=== PATIENT | female | born 1965 | race Caucasian/White ===

== ENCOUNTER → 2016-08-13 | Outpatient (REF) | payer MEDICARE, MEDICAID ==
[~2016-08-13] MED LIST: ASPI1TAB PO; CELE40TA PO; HYDR-4274 PO; VITA1CAP7 PO; [UNRECOGNIZED DRUG - OTHER] PO
[2016-08-13 13:06] LABS: ALBUMIN 4.2 GM/DL (3.2-5.2); ALKALINE PHOSPHATASE 107 U/L (45-117); ALT/SGPT 18 U/L (12-78); ANION GAP 5 MEQ/L (8-16); AST/SGOT 11 U/L (15-37); BILIRUBIN,TOTAL 0.4 MG/DL (0.2-1.0); BLOOD UREA NITROGEN 10 MG/DL (7-18); CALCIUM LEVEL 9.8 MG/DL (8.5-10.1); CARBON DIOXIDE LEVEL 31 MEQ/L (21-32); CHLORIDE LEVEL 105 MEQ/L (98-107); GLOMERULAR FILTRATION RATE > 60.0 (>51); GLUCOSE, FASTING 96 MG/DL (70-105); POTASSIUM SERUM 3.7 MEQ/L (3.5-5.1); SODIUM LEVEL 141 MEQ/L (136-145); TOTAL PROTEIN 7.2 GM/DL (6.4-8.2)
== END ==
LOC: M SFHCADAM 08:22
PROVIDERS: ATTEND Physician Assistant Medical
DX: E78.5 Hyperlipidemia, unspecified (principal); F34.1 Dysthymic disorder

== ENCOUNTER → 2016-08-13 | Outpatient (REF) | payer MEDICARE, MEDICAID ==
[2016-08-13 13:33] LABS: EOS % 0.1 % (0.0-3.0); LARGE UNSTAINED CELL # 0.1 K/mm3 (0.0-0.4); LARGE UNSTAINED CELL % 0.7 % (0.0-4.0); LYMPH # 1.7 K/mm3 (1.5-4.5); LYMPH % 16.9 % (24.0-44.0); MEAN CORPUSCULAR HEMOGLOBIN 31.3 pg (27.0-33.0); MEAN CORPUSCULAR HGB CONC 33.7 g/dl (32.0-36.5); MEAN CORPUSCULAR VOLUME 92.8 fl (80.0-96.0); MONO # 0.3 K/mm3 (0.0-0.8); MONO % 3.2 % (0.0-5.0); NEUTROPHILS # 7.8 K/mm3 (1.8-7.7); PLATELET COUNT, AUTOMATED 202 k/mm3 (150-450); RED CELL DISTRIBUTION WIDTH 12.6 % (11.5-14.5); WHITE BLOOD COUNT 9.8 K/mm3 (4.0-10.0)
[2016-08-13 13:36] LABS: ALBUMIN 4.1 GM/DL (3.2-5.2); ALBUMIN/GLOBULIN RATIO 1.41 (1.00-1.93); ALKALINE PHOSPHATASE 104 U/L (45-117); ALT/SGPT 17 U/L (12-78); ANION GAP 6 MEQ/L (8-16); AST/SGOT 13 U/L (15-37); BILIRUBIN,TOTAL 0.5 MG/DL (0.2-1.0); BLOOD UREA NITROGEN 10 MG/DL (7-18); CALCIUM LEVEL 10.2 MG/DL (8.5-10.1); CARBON DIOXIDE LEVEL 30 MEQ/L (21-32); CHLORIDE LEVEL 106 MEQ/L (98-107); CHOLESTEROL LEVEL 202 MG/DL (<200); CREATININE FOR GFR 0.77 MG/DL (0.55-1.02); GLOMERULAR FILTRATION RATE > 60.0 (>51); GLUCOSE, FASTING 102 MG/DL (70-105); POTASSIUM SERUM 3.8 MEQ/L (3.5-5.1); SODIUM LEVEL 142 MEQ/L (136-145); TRIGLYCERIDES LEVEL 154 MG/DL (<150)
== END ==
LOC: M LABDRWAD 12:43
PROVIDERS: ATTEND Internal Medicine Cardiovascular Disease
DX: Z01.818 Encounter for other preprocedural examination (principal); E66.9 Obesity, unspecified; I10 Essential (primary) hypertension; R00.2 Palpitations; Z72.0 Tobacco use; R94.31 Abnormal electrocardiogram [ECG] [EKG]; E78.5 Hyperlipidemia, unspecified; F34.1 Dysthymic disorder; Z82.49 Family history of ischemic heart disease and other diseases of the circulatory system

== ENCOUNTER → 2016-11-14 | Outpatient (REF) | payer MEDICARE, MEDICAID ==
[~2016-11-14] MED LIST changes: -HYDR-4274 PO; +HYDR50TA70 PO
== END ==
LOC: M SFHCADAM 09:48
PROVIDERS: ATTEND Family Medicine
DX: Z01.419 Encounter for gynecological examination (general) (routine) without abnormal findings (principal); N95.2 Postmenopausal atrophic vaginitis; N63 Unspecified lump in breast; L98.9 Disorder of the skin and subcutaneous tissue, unspecified
CPT/HCPCS: 87070; 87205; 87624; G0123

== ENCOUNTER → 2016-11-26 | Outpatient (CLI) | payer MEDICAID, MEDICARE ==
--- NOTE | 2016-11-26 11:43 | REP ---
LEFT CHEST WALL ULTRASOUND: Left chest wall ultrasound is performed for a palpable abnormality inferior to the left breast. No cystic or solid nodule is seen in the chest wall at the site of a reported palpable abnormality. Clinical correlation and followup recommended. Signed by Lino Martínez MD 11/26/2016 05:36 P
--- NOTE | 2016-11-26 11:51 | REP ---
BILATERAL MAMMOGRAM: FAMILY HISTORY: Mother with breast cancer at age 20. Reportedly there is a palpable abnormality inferior to the left breast in the chest wall. It cannot be visualized by mammography. MLO and CC views of both breasts are performed. There are no prior studies for comparison. There is moderate fibroglandular tissue diffusely bilaterally with no suspicious mass or clustered microcalcifications. No area of architectural distortion is seen. Small normal axillary lymph nodes are present. Ultrasound of the left chest wall at the site of the reported palpable abnormality demonstrated no cystic or solid nodule. IMPRESSION: ACR 2 benign. No mass or clustered microcalcifications. The reported palpable abnormality inferior to the left breast cannot be included on the mammogram and by ultrasound, no cystic or solid nodule is seen at that location. Clinical correlation and followup recommended. Recommend followup mammogram in 1 year. BI-RADS/ACR category 2 mammogram. Benign finding(s). Routine annual screening mammography (for women over age 40). This mammogram was interpreted with the aid of an FDA-approved computer-aided detection system. A. Negative x-ray reports should not delay biopsy if a dominant or clinically suspicious mass is present. B. Four to eight percent of cancers are not identified by x-ray. C. Adenosis and dense breasts may obscure an underlying neoplasm. The patient states she had a clinical breast exam in 10/2016. The patient letter being requested is M2. Signed by Lino Martínez MD 11/26/2016 05:36 P
== END ==
LOC: M RAD 09:48
PROVIDERS: ATTEND Physician Assistant Medical
DX: N63 Unspecified lump in breast (principal); Z80.3 Family history of malignant neoplasm of breast
CPT/HCPCS: 76705; G0204

== ENCOUNTER → 2018-02-09 | Outpatient (REF) | payer MEDICARE ==
[2018-02-09 13:30] LABS: RHEUMATOID FACTOR QUANT < 10.0 IU/ML (<15.0)
[2018-02-09 13:30] LABS: C REACTIVE PROTEIN QUANTITATIV 0.39 MG/DL (0.00-0.30)
[2018-02-09 14:10] LABS: ERYTHROCYTE SEDIMENTATION RATE 12 mm/hr (0-30)
[2018-02-11 00:10] LABS: ANTI DOUBLE STRAND-DNA AB 2 IU/mL (0-9); ANTINUCLEAR ANTIBODIES DIRECT Positive (Negative); Lyme Disease IgG/IgM Antibodie <0.91 ISR (0.00-0.90); Lyme Disease IgM Ab Quantitati <0.80 index (0.00-0.79); RNP ANTIBODIES 0.3 AI (0.0-0.9); SJOGREN'S ANTI SS-A <0.2 AI (0.0-0.9); SJOGREN'S ANTI SS-B 1.3 AI (0.0-0.9); SMITH ANTIBODIES <0.2 AI (0.0-0.9)
== END ==
LOC: M SFHCADAM 09:49
DX: M25.50 Pain in unspecified joint (principal)
CPT/HCPCS: 86140

== ENCOUNTER → 2018-02-09 | Outpatient (CLI) | payer MEDICARE | LOC: M ADAMS 10:00 | DX: M18.12 Unilateral primary osteoarthritis of first carpometacarpal joint, left hand (principal); M79.642 Pain in left hand; M79.645 Pain in left finger(s); M25.532 Pain in left wrist | CPT/HCPCS: 73110; 86140 ==

== ENCOUNTER → 2018-03-16 | Outpatient (CLI) | payer MEDICARE | LOC: M ADAMS 10:14 | DX: M25.50 Pain in unspecified joint (principal); M79.672 Pain in left foot; M79.671 Pain in right foot; M25.78 Osteophyte, vertebrae; M51.37 Other intervertebral disc degeneration, lumbosacral region | CPT/HCPCS: 72110; 86038 ==

== ENCOUNTER → 2018-03-16 | Outpatient (REF) | payer MEDICARE ==
[2018-03-18 00:06] LABS: ANA (HEP2) Negative (.)
== END ==
LOC: M SFHCADAM 10:02
DX: R76.8 Other specified abnormal immunological findings in serum (principal)
CPT/HCPCS: 86038

== ENCOUNTER → 2018-10-26 | Outpatient (REF) | payer MEDICARE, OTHER ==
[~2018-10-26] MED LIST changes: -ASPI1TAB PO; +ASPI81TA26 PO; +D-3-50003 PO; -VITA1CAP7 PO
== END ==
LOC: M LAB REF 12:16
PROVIDERS: ATTEND Physician Assistant Medical
DX: N39.0 Urinary tract infection, site not specified (principal)

== ENCOUNTER → 2018-12-03 | Outpatient (REF) | payer MEDICARE | LOC: M LAB REF 18:03 | PROVIDERS: ATTEND Physician Assistant Medical | DX: N39.0 Urinary tract infection, site not specified (principal) ==

== ENCOUNTER → 2018-12-10 | Outpatient (REF) | payer MEDICARE, OTHER ==
[2018-12-10 12:36] LABS: APPEARANCE, URINE CLEAR (CLEAR); BACTERIA, URINE AUTO 1+ (NEGATIVE); BILIRUBIN, URINE AUTO NEGATIVE (NEGATIVE); BLOOD, URINE BLOOD 3+ (NEGATIVE); COLOR, URINE YELLOW (YELLOW); GLUCOSE, URINE (UA) AUTO NEGATIVE (NEGATIVE); KETONE, URINE AUTO NEGATIVE (NEGATIVE); LEUKOCYTE ESTERASE, URINE AUTO TRACE (NEGATIVE); MUCUS, URINE SMALL (NEGATIVE); NITRITE, URINE AUTO NEGATIVE (NEGATIVE); PROTEIN, URINE AUTO NEGATIVE (NEGATIVE); RBC, URINE AUTO 52 /HPF (0-3); SPECIFIC GRAVITY URINE AUTO 1.012 (1.002-1.035); SQUAMOUS EPITHELIAL CELL UR AU 0 /HPF (0-6); UROBILINOGEN, URINE AUTO 0.2 mg/dL (0.0-2.0); WBC, URINE AUTO 1 /HPF (0-3)
== END ==
LOC: M SFHCADAM 12:13
PROVIDERS: ATTEND Physician Assistant Medical
DX: R39.15 Urgency of urination (principal); R10.9 Unspecified abdominal pain

== ENCOUNTER → 2018-12-21 | Outpatient (REF) | payer MEDICARE, OTHER ==
[2018-12-21 14:16] LABS: AMORPHOUS SEDIMENT SMALL (NEGATIVE); APPEARANCE, URINE CLOUDY (CLEAR); BACTERIA, URINE AUTO NEGATIVE (NEGATIVE); BILIRUBIN, URINE AUTO NEGATIVE (NEGATIVE); BLOOD, URINE BLOOD 2+ (NEGATIVE); COLOR, URINE YELLOW (YELLOW); GLUCOSE, URINE (UA) AUTO NEGATIVE (NEGATIVE); KETONE, URINE AUTO NEGATIVE (NEGATIVE); LEUKOCYTE ESTERASE, URINE AUTO NEGATIVE (NEGATIVE); MUCUS, URINE SMALL (NEGATIVE); NITRITE, URINE AUTO NEGATIVE (NEGATIVE); PROTEIN, URINE AUTO NEGATIVE (NEGATIVE); RBC, URINE AUTO 26 /HPF (0-3); SPECIFIC GRAVITY URINE AUTO 1.011 (1.002-1.035); SQUAMOUS EPITHELIAL CELL UR AU 0 /HPF (0-6); UROBILINOGEN, URINE AUTO 0.2 mg/dL (0.0-2.0); WBC, URINE AUTO 1 /HPF (0-3)
== END ==
LOC: M SFHCADAM 08:55
PROVIDERS: ATTEND Physician Assistant Medical
DX: R31.21 Asymptomatic microscopic hematuria (principal)

== ENCOUNTER → 2018-12-22 | Outpatient (CLI) | payer MEDICARE ==
[~2018-12-22] MED LIST changes: +BACT800T5 PO; +CETI10CH PO; +PHEN-501 PO; +RA T500C2 PO; +REME15TA2 PO; +ZYRTTAB8 PO
[2018-12-22 17:39] LABS: BLOOD UREA NITROGEN 13 MG/DL (7-18); CREATININE FOR GFR 0.84 MG/DL (0.55-1.30); GLOMERULAR FILTRATION RATE > 60.0 (>51)
[2018-12-22 18:26] LABS: APPEARANCE, URINE CLOUDY (CLEAR); BACTERIA, URINE AUTO 1+ (NEGATIVE); BILIRUBIN, URINE AUTO NEGATIVE (NEGATIVE); BLOOD, URINE BLOOD 3+ (NEGATIVE); CALCIUM OXALATE CRYSTALS LARGE; COLOR, URINE AMBER (YELLOW); GLUCOSE, URINE (UA) AUTO NEGATIVE (NEGATIVE); KETONE, URINE AUTO TRACE mg/dL (NEGATIVE); LEUKOCYTE ESTERASE, URINE AUTO 2+ (NEGATIVE); MUCUS, URINE SMALL (NEGATIVE); NITRITE, URINE AUTO NEGATIVE (NEGATIVE); PROTEIN, URINE AUTO 2+ mg/dL (NEGATIVE); RBC, URINE AUTO 40 /HPF (0-3); SPECIFIC GRAVITY URINE AUTO 1.021 (1.002-1.035); SQUAMOUS EPITHELIAL CELL UR AU 1 /HPF (0-6); WBC, URINE AUTO 26 /HPF (0-3)
== END ==
LOC: M SMT 15:19
PROVIDERS: ATTEND Urology
DX: R31.0 Gross hematuria (principal)
CPT/HCPCS: 36415; 81001; 82565; 84520; G0463

== ENCOUNTER → 2018-12-27 | Outpatient (CLI) | payer MEDICARE ==
[~2018-12-27] MED LIST changes: -BACT800T5 PO; -CETI10CH PO; +ISOVUE-370 76% 100ML VIAL (Q9967) As Ordered ONE; -PHEN-501 PO; -RA T500C2 PO; -REME15TA2 PO; -ZYRTTAB8 PO
--- NOTE | 2018-12-28 08:25 | REP ---
CT urography: CT abdomen and pelvis without and with IV contrast: History: Gross hematuria. Comparison study: December 08, 2018. CT contrast dose: 100 mL of intravenous Isovue 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 The lung bases are clear on axial CT images. The liver contains a small sub-centimeter central hepatic cyst, 8.5 mm in diameter. The liver is otherwise homogeneous in texture and normal in appearance. The spleen is at the upper range of normal in size measuring 13.2 cm in greatest transverse dimension. No focal splenic lesion is seen. No adrenal lesion is observed on either side. The pancreas shows no abnormality. The gallbladder is unremarkable. The kidneys show no evidence of hydronephrosis or mass. There is a tiny calcific opacity in the upper pole collecting system of the right kidney on page 31 of 147 in series 201 of the precontrast study. A tiny kidney stone is suspected. There is a tiny cyst in the upper pole of the left kidney measuring 9 mm in greatest diameter. Post contrast delayed images show no filling defect in the collecting system on either side. The ureters describe a normal course to the bladder. No bladder mass lesion is observed. No other urinary tract calculus is seen. No retroperitoneal mass or adenopathy is seen. Small and large intestinal bowel loops are unremarkable. No abdominal wall defect is seen. No bony destructive lesion is observed. Impression: 1. Suspect tiny 1-2 mm calculus upper pole right kidney. 2. 9 mm cyst upper pole left kidney. 3. Borderline size spleen. 4. Subcentimeter cyst in the liver. 5. Otherwise negative CT urography. Electronically Signed by Bong Ricardo MD 12/28/2018 07:26 P
== END ==
LOC: M RAD 16:05
PROVIDERS: ATTEND Urology
DX: N28.1 Cyst of kidney, acquired (principal); K76.89 Other specified diseases of liver; R31.0 Gross hematuria
CPT/HCPCS: 74178; Q9967

== ENCOUNTER → 2019-01-07 | Outpatient (CLI) | payer MEDICARE ==
[~2019-01-07] MED LIST changes: +BACT800T5 PO; +CETI10CH PO; -ISOVUE-370 76% 100ML VIAL (Q9967) As Ordered ONE; +PHEN-501 PO; +RA T500C2 PO; +REME15TA2 PO; +ZYRTTAB8 PO
[2019-01-07 14:41] LABS: EOS % 0.1 % (0.0-3.0); HEMOGLOBIN 12.7 g/dl (12.0-15.5); LYMPH # 2.3 10^3/uL (1.5-4.5); LYMPH % 31.7 % (24.0-44.0); MEAN CORPUSCULAR HEMOGLOBIN 31.3 pg (27.0-33.0); MEAN CORPUSCULAR HGB CONC 33.4 g/dl (32.0-36.5); MEAN CORPUSCULAR VOLUME 93.6 fl (80.0-96.0); MONO # 0.4 10^3/uL (0.0-0.8); MONO % 5.8 % (0.0-5.0); NEUTROPHILS # 4.5 10^3/uL (1.8-7.7); NEUTROPHILS % 62.1 % (36.0-66.0); PLATELET COUNT, AUTOMATED 230 10^3/uL (150-450); RED BLOOD COUNT 4.06 10^6/uL (4.00-5.40); WHITE BLOOD COUNT 7.3 10^3/uL (4.0-10.0)
[2019-01-07 14:42] LABS: APPEARANCE, URINE HAZY (CLEAR); BACTERIA, URINE AUTO NEGATIVE (NEGATIVE); BILIRUBIN, URINE AUTO NEGATIVE (NEGATIVE); BLOOD, URINE BLOOD 3+ (NEGATIVE); CALCIUM OXALATE CRYSTALS SMALL; COLOR, URINE YELLOW (YELLOW); GLUCOSE, URINE (UA) AUTO NEGATIVE (NEGATIVE); KETONE, URINE AUTO TRACE mg/dL (NEGATIVE); LEUKOCYTE ESTERASE, URINE AUTO 2+ (NEGATIVE); MUCUS, URINE SMALL (NEGATIVE); NITRITE, URINE AUTO NEGATIVE (NEGATIVE); PROTEIN, URINE AUTO NEGATIVE (NEGATIVE); RBC, URINE AUTO 9 /HPF (0-3); SPECIFIC GRAVITY URINE AUTO 1.015 (1.002-1.035); SQUAMOUS EPITHELIAL CELL UR AU 1 /HPF (0-6); UROBILINOGEN, URINE AUTO 0.2 mg/dL (0.0-2.0); WBC, URINE AUTO 16 /HPF (0-3)
[2019-01-07 14:49] LABS: BLOOD UREA NITROGEN 14 MG/DL (7-18); CALCIUM LEVEL 10.6 MG/DL (8.5-10.1); CARBON DIOXIDE LEVEL 31 MEQ/L (21-32); CHLORIDE LEVEL 107 MEQ/L (98-107); CREATININE FOR GFR 0.85 MG/DL (0.55-1.30); GLOMERULAR FILTRATION RATE > 60.0 (>51); GLUCOSE, FASTING 101 MG/DL (70-100); POTASSIUM SERUM 3.6 MEQ/L (3.5-5.1); SODIUM LEVEL 142 MEQ/L (136-145)
--- NOTE | 2019-01-08 14:52 | ECGEPIP ---
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
== END ==
LOC: M LAB 13:31
PROVIDERS: ATTEND Urology
DX: R31.0 Gross hematuria (principal)

== ENCOUNTER 2019-01-13 10:01 | Day surgery (SDC) | payer MEDICARE ==
[~2019-01-13] VITALS: Ht 162.6 cm; Wt 83.4 kg
[~2019-01-13 10:01] MED LIST changes: -BACT800T5 PO; -CETI10CH PO; +LIDOCAINE 1% MDV 20ML VIAL SQ PRN; +LR 1,000 ML IV ONE; -PHEN-501 PO; +ceFAZolin SOD 2 GM in IV 1 EA IV ONE
[2019-01-13] MEDS ORDERED: LIDOCAINE 2% INJ 100 MG/5 ML SDV (FOR ANES.) As Ordered ONE (12:59)
[2019-01-13] MEDS ORDERED: MIDAZOLAM INJ 2 MG/2 ML VIAL (J2250) As Ordered ONE (12:59)
[2019-01-13] MEDS ORDERED: propofoL 200 MG/20 ML VIAL As Ordered ONE (12:59)
[2019-01-13] MEDS ORDERED: ROCURONIUM BROMIDE 50 MG/5 ML VIAL As Ordered ONE (12:59)
[2019-01-13] MEDS ORDERED: fentaNYL 100 MCG/2 ML INJECTION (J3010) As Ordered ONE (12:59)
[2019-01-13] MEDS ORDERED: BUPIVACAINE HCL 0.5% 30 ML VIAL As Ordered ONE (13:34)
[2019-01-13] MEDS ORDERED: ONDANSETRON 4MG/2ML VIAL (J2405) As Ordered ONE (14:00)
[2019-01-13] MEDS ORDERED: KETOROLAC 60 MG/2 ML VIAL (J1885) As Ordered ONE (14:00)
[2019-01-13] MEDS ORDERED: ePHEDrine SULFATE 25 MG/5 ML(5MG/ML) SYRINGE As Ordered ONE (14:00)
[2019-01-13] MEDS ORDERED: PERCOCET 5MG/325MG TAB As Ordered ONE (14:31)
[2019-01-13] MEDS ORDERED: PHEN-501 PO (14:39)
[2019-01-13] MEDS ORDERED: BACT800T5 PO (14:39)
[2019-01-13] MEDS ORDERED: ONDANSETRON 4MG/2ML VIAL (J2405) IV PRN (15:00)
[2019-01-13] MEDS ORDERED: LR 1,000 ML IV SCH (15:00)
[2019-01-13] MEDS ORDERED: fentaNYL 100 MCG/2 ML INJECTION (J3010) IV PRN (15:00)
[2019-01-13] MEDS ORDERED: PERCOCET 5MG/325MG TAB PO PRN (15:00)
[2019-01-13 15:30] VITALS: BP 120/56
--- NOTE | 2019-01-14 11:25 | RO ---
DATE OF PROCEDURE: 01/13/2019 PREPROCEDURE DIAGNOSIS: Bladder neck polyps with urgency and frequency symptoms. POSTPROCEDURE DIAGNOSIS: Bladder neck polyps with urgency and frequency symptoms. PROCEDURE PERFORMED: Cystoscopy, biopsy, and fulguration of bladder neck polyps. SURGEON: Alfredo Madera MD TUBE DRAWER: ANESTHESIA: General. 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 She has a past history of smoking. She had a CT scan demonstrating a small passable sized right upper pole stone. She has had pyuria with several negative cultures. She does have urgency and frequency at times and must get up two to three times at night to void. Office cystoscopy revealed multiple polyps about the bladder neck and possibly urethra. DESCRIPTION OF PROCEDURE: After obtaining informed consent from the patient, she was brought to the operating room where she underwent general anesthetic. She was prepped and draped in the usual manner. A 22-Arabic diagnostic cystoscope was advanced into the bladder and the bladder was inspected. Ureteral orifices were in orthotopic position, effluxing clear urine. No other bladder mucosal lesions were seen. There were multiple polyps in the bladder neck and proximal urethra. Cold cut biopsy forceps were used to remove these and additional small polyps were fulgurated with electrocautery in addition to obtaining hemostasis. The bladder was then emptied and the patient went to the recovery room in satisfactory condition. DISPOSITION: Dismissed home to followup in 10 to 14 days. Diet as tolerated. Activity as tolerated. MEDICATIONS: - Septra DS one by mouth twice a day - Pyridium 200 mg as needed for dysuria
[2019-03-24] MEDS ORDERED: CETI10CH PO (09:08)
== END 2019-01-13 15:45 | disposition home or self-care (01) ==
LOC: M SDC 10:01
PROVIDERS: ATTEND Urology
DX: N32.0 Bladder-neck obstruction (principal); D18.09 Hemangioma of other sites; R39.15 Urgency of urination; R35.0 Frequency of micturition; R31.0 Gross hematuria; F17.210 Nicotine dependence, cigarettes, uncomplicated; F41.9 Anxiety disorder, unspecified; I25.2 Old myocardial infarction; Z88.8 Allergy status to other drugs, medicaments and biological substances; Z79.82 Long term (current) use of aspirin; Z79.899 Other long term (current) drug therapy
CPT/HCPCS: 52214; 88305; J0690; J1885; J2250; J2405; J3010

== ENCOUNTER 2019-04-08 06:34 | Day surgery (SDC) | payer MEDICARE ==
[~2019-04-08] VITALS: Ht 162.6 cm; Wt 75.7 kg
[~2019-04-08 06:34] MED LIST changes: +BACT800T5 PO; +CETI10CH PO; -LIDOCAINE 1% MDV 20ML VIAL SQ PRN; -LR 1,000 ML IV ONE; +NS 1,000 ML IV ONE; +PHEN-501 PO; -ceFAZolin SOD 2 GM in IV 1 EA IV ONE
[2019-04-08] MEDS ORDERED: PROPOFOL 200 MG/20 ML VIAL As Ordered ONE (07:40)
[2019-04-08] MEDS ORDERED: LIDOCAINE 2% INJ 100 MG/5 ML SDV (FOR ANES.) As Ordered ONE (07:40)
--- NOTE | 2019-04-08 07:49 | ROOR ---
Patient Name: Eve Veliz Procedure Date: 04/08/2019 7:32 AM Date of : 1965 Age: 53 Room: [facility] Gender: Female Note Status: Finalized Procedure: Colonoscopy Indications: Generalized abdominal pain, Constipation Providers: Higinio BARNARD MD Referring MD: ALONSO Dang Requesting Provider: Medicines: Monitored Anesthesia Care Complications: No immediate complications. Procedure: Pre-Anesthesia Assessment: - The heart rate, respiratory rate, oxygen saturations, blood pressure, adequacy of pulmonary ventilation, and response to care were monitored throughout the procedure. The Colonoscope was introduced through the anus and advanced to the cecum, identified by appendiceal orifice and ileocecal valve. The colonoscopy was performed with difficulty due to inadequate bowel prep. The patient tolerated the procedure well. The quality of the bowel preparation was unsatisfactory. Findings: Skin tags were found on perianal exam. The colon is grossly normal without large tumors or obstructing lesions. Unable to perform adequate detail examination. Small lesions may have been missed. Internal hemorrhoids were found during retroflexion. The hemorrhoids were medium-sized. Impression: - Preparation of the colon was unsatisfactory. - The colon is grossly normal without large tumors or obstructing lesions. Unable to perform adequate detail examination. Small lesions may have been missed. - Perianal skin tags found on perianal exam. - Internal hemorrhoids. - No specimens collected. Recommendation: - Repeat colonoscopy at the next available appointment because the bowel preparation was poor. - My office will call you to reschedule the procedure. Higinio Barnard MD Higinio BARNARD MD 04/08/2019 7:49:04 AM Electronically signed by Higinio BARNARD MD Number of Addenda: 0 Note Initiated On: 04/08/2019 7:32 AM Estimated Blood Loss: Estimated blood loss: none.
[2019-04-08 08:10] VITALS: BP 131/63
== END 2019-04-08 08:20 | disposition home or self-care (01) ==
LOC: M OPP 06:34
PROVIDERS: ATTEND Internal Medicine Gastroenterology
DX: K64.4 Residual hemorrhoidal skin tags (principal); R10.84 Generalized abdominal pain; K59.00 Constipation, unspecified; Z88.5 Allergy status to narcotic agent; Z88.8 Allergy status to other drugs, medicaments and biological substances; Z79.82 Long term (current) use of aspirin; Z79.899 Other long term (current) drug therapy

== ENCOUNTER → 2019-07-17 | Outpatient (CLI) | payer MEDICARE ==
[~2019-07-17] MED LIST changes: +B-12100T2 PO; -NS 1,000 ML IV ONE; +VITA500079 PO
--- NOTE | 2019-07-18 07:49 | REP ---
RIGHT THIRD DIGIT, FOUR VIEWS: Four views of the right 3rd digit are performed and demonstrate no fracture, dislocation or intrinsic bone disease. IMPRESSION: No acute fracture or dislocation. Electronically Signed by Lino Martínez MD 07/18/2019 01:20 P
== END ==
LOC: M ADAMS 13:56
PROVIDERS: ATTEND Physician Assistant
DX: M79.644 Pain in right finger(s) (principal)

== ENCOUNTER 2019-07-25 07:23 | Day surgery (SDC) | payer MEDICARE ==
[~2019-07-25] VITALS: Ht 162.6 cm; Wt 86.2 kg
[~2019-07-25 07:23] MED LIST changes: +NS 1,000 ML IV ONE
[2019-07-25] MEDS ORDERED: propofoL 200 MG/20 ML VIAL As Ordered ONE (08:33)
[2019-07-25] MEDS ORDERED: LIDOCAINE 2% INJ 100 MG/5 ML SDV (FOR ANES.) As Ordered ONE (08:33)
--- NOTE | 2019-07-25 09:16 | ROOR ---
Patient Name: Eve Veliz Procedure Date: 07/25/2019 8:29 AM Date of : 1965 Age: 53 Room: [facility] Gender: Female Note Status: Finalized Procedure: Colonoscopy Indications: Constipation Providers: Higinio BARNARD MD Referring MD: ALONSO Dang Requesting Provider: Medicines: Monitored Anesthesia Care Complications: No immediate complications. Procedure: Pre-Anesthesia Assessment: - The heart rate, respiratory rate, oxygen saturations, blood pressure, adequacy of pulmonary ventilation, and response to care were monitored throughout the procedure. The Colonoscope was introduced through the anus and advanced to the terminal ileum, with identification of the appendiceal orifice and IC valve. The patient tolerated the procedure well. The quality of the bowel preparation was good. The bowel preparation used was TriLyte and magnesium citrate via split dose instruction. Findings: The perianal and digital rectal examinations were normal. There was moderate spasm/acute angulation in the mid/proximal sigmoid colon. Advancing the scope required changing the patient's position. A few small-mouthed diverticula were found in the sigmoid colon. The exam was otherwise without abnormality. Impression: - Mild diverticulosis, in the sigmoid colon. - The colonoscopy was otherwise normal. - No specimens collected. Recommendation: - Continue present medications. Higinio Barnard MD Higinio BARNARD MD 07/25/2019 9:15:59 AM Electronically signed by Higinio BARNARD MD Number of Addenda: 0 Note Initiated On: 07/25/2019 8:29 AM Estimated Blood Loss: Estimated blood loss: none.
[2019-07-25 09:35] VITALS: BP 133/63
== END 2019-07-25 09:41 | disposition home or self-care (01) ==
LOC: M OPP 07:23
PROVIDERS: ATTEND Internal Medicine Gastroenterology
DX: K57.30 Diverticulosis of large intestine without perforation or abscess without bleeding (principal); K58.9 Irritable bowel syndrome, unspecified; K59.00 Constipation, unspecified; R07.9 Chest pain, unspecified; R06.02 Shortness of breath; I11.9 Hypertensive heart disease without heart failure; I25.2 Old myocardial infarction; E66.9 Obesity, unspecified; Z68.30 Body mass index [BMI] 30.0-30.9, adult; E78.5 Hyperlipidemia, unspecified; R00.2 Palpitations; R94.31 Abnormal electrocardiogram [ECG] [EKG]; Z82.49 Family history of ischemic heart disease and other diseases of the circulatory system; M54.9 Dorsalgia, unspecified; Z86.14 Personal history of Methicillin resistant Staphylococcus aureus infection; F41.9 Anxiety disorder, unspecified; F32.9 Major depressive disorder, single episode, unspecified; G47.00 Insomnia, unspecified; G43.909 Migraine, unspecified, not intractable, without status migrainosus; Z79.899 Other long term (current) drug therapy; Z79.82 Long term (current) use of aspirin; Z88.5 Allergy status to narcotic agent; Z88.1 Allergy status to other antibiotic agents; Z88.8 Allergy status to other drugs, medicaments and biological substances; F17.210 Nicotine dependence, cigarettes, uncomplicated

== ENCOUNTER → 2019-11-03 | Outpatient (REF) | payer MEDICARE ==
[~2019-11-03] MED LIST changes: -NS 1,000 ML IV ONE
[2019-11-03 12:46] LABS: HEMATOCRIT 41.7 % (36.0-47.0); HEMOGLOBIN 13.7 g/dl (12.0-15.5); LYMPH # 2.3 10^3/uL (1.5-5.0); LYMPH % 23.5 % (24.0-44.0); MEAN CORPUSCULAR HEMOGLOBIN 31.1 pg (27.0-33.0); MEAN CORPUSCULAR HGB CONC 32.9 g/dl (32.0-36.5); MEAN CORPUSCULAR VOLUME 94.6 fl (80.0-96.0); MONO # 0.6 10^3/uL (0.0-0.8); MONO % 5.6 % (0.0-5.0); NEUTROPHILS # 6.9 10^3/uL (1.5-8.5); NEUTROPHILS % 70.5 % (36.0-66.0); PLATELET COUNT, AUTOMATED 210 10^3/uL (150-450); RED BLOOD COUNT 4.41 10^6/uL (4.00-5.40); WHITE BLOOD COUNT 9.8 10^3/uL (4.0-10.0)
[2019-11-03 13:01] LABS: ALBUMIN 3.8 GM/DL (3.2-5.2); ALT/SGPT 28 U/L (12-78); BILIRUBIN,TOTAL 0.4 MG/DL (0.2-1.0); BLOOD UREA NITROGEN 12 MG/DL (7-18); CALCIUM LEVEL 10.4 MG/DL (8.5-10.1); CARBON DIOXIDE LEVEL 30 MEQ/L (21-32); CHLORIDE LEVEL 108 MEQ/L (98-107); CHOLESTEROL LEVEL 212 MG/DL (<200); CREATININE FOR GFR 0.89 MG/DL (0.55-1.30); FREE T4 0.87 NG/DL (0.76-1.46); GLOMERULAR FILTRATION RATE > 60.0 (>51); GLUCOSE, FASTING 82 MG/DL (70-100); HDL CHOLESTEROL 41 MG/DL (>40); LDL CHOLESTEROL 129 MG/DL (<100); NON-HDL-C 171 MG/DL; POTASSIUM SERUM 4.2 MEQ/L (3.5-5.1); SODIUM LEVEL 142 MEQ/L (136-145); TOTAL PROTEIN 6.8 GM/DL (6.4-8.2); TRIGLYCERIDES LEVEL 208 MG/DL (<150)
[2019-11-04 18:31] LABS: TOTAL 25(OH) VITAMIN D 54.8 NG/ML (30.0-100.0)
== END ==
LOC: M SFHCADAM 09:28
PROVIDERS: ATTEND Physician Assistant Medical
DX: E78.5 Hyperlipidemia, unspecified (principal); F34.1 Dysthymic disorder; F51.01 Primary insomnia; E55.9 Vitamin D deficiency, unspecified

== ENCOUNTER → 2021-01-10 | Outpatient (CLI) | payer MEDICARE ==
--- NOTE | 2021-01-10 12:08 | REPVR ---
PROCEDURE INFORMATION: Exam: MR Head Without Contrast Exam date and time: 01/10/2021 11:17 AM Age: 55 years old Clinical indication: Headache. TECHNIQUE: Imaging protocol: MR of the head without contrast. COMPARISON: No relevant prior studies available. FINDINGS: Brain: There are occasional nonspecific foci of high signal abnormality in the perla radiata and centrum semiovale. These are best seen on the flair images. These foci may represent areas of gliosis, demyelination, and/or chronic ischemic change. 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 There is a subtle focus of high signal abnormality in the left parietal lobe white matter and possibly in the anterior left temporal lobe on the diffusion sequence although this could be artifact. This is not fully characterized on this exam. Cerebral ventricles: Normal. No ventriculomegaly. Bones/joints: Unremarkable. Paranasal sinuses: Normal as visualized. No acute sinusitis. Mastoid air cells: Normal as visualized. No mastoid effusion. Orbital cavity: Unremarkable. Soft tissues: Unremarkable. IMPRESSION: 1. There are occasional nonspecific foci of high signal abnormality in the perla radiata and centrum semiovale. These are best seen on the flair images. These foci may represent areas of gliosis, demyelination, and/or chronic ischemic change. 2. The appearance is not typical for acute infarct although this should be correlated clinically. If patient's symptoms persist and/or worsen, followup postcontrast MRI is recommended. Electronically signed by: Archie Mejias On 01/10/2021 12:08:28 PM
--- NOTE | 2021-01-10 12:13 | REPVR ---
PROCEDURE INFORMATION: Exam: MR Cervical Spine Without Contrast Exam date and time: 01/10/2021 11:17 AM Age: 55 years old Clinical indication: Neck pain; Patient HX: Migraine, cervicalgia TECHNIQUE: Imaging protocol: Multiplanar magnetic resonance images of the cervical spine without contrast. COMPARISON: DX SPINE LS COMPLETE 03/16/2018 10:16 AM FINDINGS: Vertebrae: Unremarkable. Spinal cord: Normal signal. No cord compression. C2-C3: There is disc desiccation. C3-C4: There is degenerative disc disease including disc space narrowing and dessication. There is a moderate disc/osteophyte complex that flattens the ventral thecal sac. There is a moderate left subarticular/foraminal disc protrusion. There is bilateral uncovertebral joint arthropathy, worse on the left. There is severe left-sided neuroforaminal narrowing. There is moderate right-sided neuroforaminal narrowing. There is mild spinal canal stenosis. C4-C5: There is effacement of the intervertebral disc at this level. There is mild ventral ridging which flattens the ventral thecal sac. C5-C6: There is effacement of the intervertebral disc at this level. There is mild ventral ridging which flattens the ventral thecal sac. C6-C7: There is effacement of the intervertebral disc at this level. There is mild ventral ridging which flattens the ventral thecal sac. There is moderate bilateral uncovertebral joint arthropathy. C7-T1: There is disc desiccation. There is mild ventral ridging which flattens the ventral thecal sac. 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 Other findings: T2-3: There is degenerative disc disease including disc space narrowing and dessication. There is a small central disc protrusion. IMPRESSION: Multilevel degenerative changes causing varying degrees of spinal canal and neuroforaminal narrowing. Please see details above. Electronically signed by: Archie Mejias On 01/10/2021 12:13:14 PM
== END ==
LOC: M RAD 10:34
PROVIDERS: ATTEND Physician Assistant Medical
DX: M50.31 Other cervical disc degeneration, high cervical region (principal); G43.009 Migraine without aura, not intractable, without status migrainosus

== ENCOUNTER → 2022-04-02 | Outpatient (CLI) | payer MEDICARE | LOC: M ADAMS 09:10 | PROVIDERS: ATTEND Physician Assistant Medical | DX: M51.37 Other intervertebral disc degeneration, lumbosacral region (principal) ==

== ENCOUNTER → 2022-04-02 | Outpatient (REF) | payer MEDICARE | LOC: M SFHCADAM 09:02 | PROVIDERS: ATTEND Physician Assistant Medical | DX: E78.5 Hyperlipidemia, unspecified (principal); E55.9 Vitamin D deficiency, unspecified; F34.1 Dysthymic disorder; R34 Anuria and oliguria ==

== ENCOUNTER → 2022-04-02 | Outpatient (REF) | payer MEDICARE ==
[2022-04-02 14:31] LABS: BASO % 0.1 % (0.0-1.0); HEMATOCRIT 39.8 % (36.0-47.0); HEMOGLOBIN 13.1 g/dl (12.0-15.5); LYMPH # 1.9 10^3/uL (1.5-5.0); LYMPH % 25.1 % (24.0-44.0); MEAN CORPUSCULAR HEMOGLOBIN 30.8 pg (27.0-33.0); MEAN CORPUSCULAR HGB CONC 32.9 g/dl (32.0-36.5); MEAN CORPUSCULAR VOLUME 93.6 fl (80.0-96.0); MONO # 0.4 10^3/uL (0.0-0.8); MONO % 5.6 % (2.0-8.0); NEUTROPHILS # 5.3 10^3/uL (1.5-8.5); NEUTROPHILS % 68.8 % (36.0-66.0); PLATELET COUNT, AUTOMATED 214 10^3/uL (150-450); RED BLOOD COUNT 4.25 10^6/uL (4.00-5.40); WHITE BLOOD COUNT 7.7 10^3/uL (4.0-10.0)
[2022-04-02 16:20] LABS: ALBUMIN 4.3 G/DL (3.2-5.2); ALKALINE PHOSPHATASE 93 U/L (46-116); ALT/SGPT 14 U/L (7.0-40); AST/SGOT 17 U/L (<34); BILIRUBIN,TOTAL 0.5 MG/DL (0.3-1.2); BLOOD UREA NITROGEN 15 MG/DL (9-23); CALCIUM LEVEL 10.6 MG/DL (8.5-10.1); CARBON DIOXIDE LEVEL 24 MMOL/L (20-31); CHLORIDE LEVEL 109 MMOL/L (98-107); GLOMERULAR FILTRATION RATE > 60.0 (>51); GLUCOSE, FASTING 85 MG/DL (60-100); POTASSIUM SERUM 3.9 MMOL/L (3.5-5.1); SODIUM LEVEL 142 MMOL/L (136-145); TOTAL 25(OH) VITAMIN D 65.4 NG/ML (20.0-100.0); TOTAL PROTEIN 6.7 G/DL (5.7-8.2); VITAMIN B12 LEVEL 559 PG/ML (211-911)
[2022-04-02 18:35] LABS: FOLATE 2.4 NG/ML (>5.4)
== END ==
LOC: M LABDRWAD 12:50
PROVIDERS: ATTEND Psychiatry & Neurology Neurology
DX: R51.9 Headache, unspecified (principal); Z79.899 Other long term (current) drug therapy

== ENCOUNTER → 2022-12-26 | Outpatient (REF) | payer MEDICARE ==
[~2022-12-26] MED LIST changes: +MIRT-84 PO; -REME15TA2 PO
== END ==
LOC: M PLALAB 12:57
PROVIDERS: ATTEND Nurse Practitioner Family
DX: Z12.4 Encounter for screening for malignant neoplasm of cervix (principal); R87.810 Cervical high risk human papillomavirus (HPV) DNA test positive; R87.610 Atypical squamous cells of undetermined significance on cytologic smear of cervix (ASC-US); N95.2 Postmenopausal atrophic vaginitis
CPT/HCPCS: 87624; G0123

== ENCOUNTER → 2022-12-26 | Outpatient (CLI) | payer MEDICARE | LOC: M WHC 10:39 | PROVIDERS: ATTEND Nurse Practitioner Family | DX: Z12.31 Encounter for screening mammogram for malignant neoplasm of breast (principal); R92.8 Other abnormal and inconclusive findings on diagnostic imaging of breast ==

== ENCOUNTER → 2023-01-13 | Outpatient (CLI) | payer MEDICARE | LOC: M WHC 07:52 | PROVIDERS: ATTEND Nurse Practitioner Family | DX: Z12.31 Encounter for screening mammogram for malignant neoplasm of breast (principal) | CPT/HCPCS: 77065; G0279 ==

== ENCOUNTER → 2023-06-26 | Outpatient (CLI) | payer MEDICARE ==
[2023-06-26 15:19] LABS: BASO % 0.1 % (0.0-1.0); HEMATOCRIT 39.9 % (36.0-47.0); HEMOGLOBIN 13.4 g/dl (12.0-15.5); LYMPH # 1.9 10^3/uL (1.5-5.0); LYMPH % 20.9 % (24.0-44.0); MEAN CORPUSCULAR HEMOGLOBIN 31.5 pg (27.0-33.0); MEAN CORPUSCULAR HGB CONC 33.6 g/dl (32.0-36.5); MEAN CORPUSCULAR VOLUME 93.9 fl (80.0-96.0); MONO # 0.5 10^3/uL (0.0-0.8); MONO % 4.9 % (2.0-8.0); NEUTROPHILS # 6.8 10^3/uL (1.5-8.5); NEUTROPHILS % 73.8 % (36.0-66.0); PLATELET COUNT, AUTOMATED 219 10^3/uL (150-450); RED BLOOD COUNT 4.25 10^6/uL (4.00-5.40); WHITE BLOOD COUNT 9.2 10^3/uL (4.0-10.0)
[2023-06-26 15:35] LABS: ERYTHROCYTE SEDIMENTATION RATE 13 mm/hr (0-30)
[2023-06-26 15:35] LABS: INR 0.96; PROTHROMBIN TIME 12.5 SECONDS (12.5-14.5)
[2023-06-26 16:59] LABS: HEMOGLOBIN A1c 4.7 % (4.0-6.0)
[2023-06-26 17:01] LABS: ALKALINE PHOSPHATASE 98 U/L (46-116); ALT/SGPT 11 U/L (7.0-40); AST/SGOT < 8 U/L (<34); BILIRUBIN,TOTAL 0.4 MG/DL (0.3-1.2); BLOOD UREA NITROGEN 9 MG/DL (9-23); CALCIUM LEVEL 10.6 MG/DL (8.5-10.1); CARBON DIOXIDE LEVEL 24 MMOL/L (20-31); CHLORIDE LEVEL 109 MMOL/L (98-107); GLOMERULAR FILTRATION RATE > 60.0 (>51); GLUCOSE, FASTING 79 MG/DL (60-100); POTASSIUM SERUM 3.6 MMOL/L (3.5-5.1); SODIUM LEVEL 139 MMOL/L (136-145); TOTAL PROTEIN 6.7 G/DL (5.7-8.2)
[2023-06-26 17:02] LABS: FOLATE 15.85 NG/ML (>5.4); VITAMIN B12 LEVEL 724 PG/ML (211-911)
[2023-07-03 10:51] LABS: DRVV SCREEN 37.3 SECONDS
[2023-07-03 11:11] LABS: PTT LUPUS TYPE ANTICOAG SCREEN 0.88 (0-1.20)
[2023-07-06 19:11] LABS: ANCA-ATYPICAL <1:20 titer (Neg:<1:20); ANTI DOUBLE STRAND-DNA AB 2 IU/mL (0-9); ANTI DS-DNA AB Negative (Negative); ANTINUCLEAR ANTIBODIES DIRECT Positive (Negative); CARDIOLIPIN IGA ANTIBODY 9 APL U/mL (0-11); CARDIOLIPIN IGG ANTIBODY <9 GPL U/mL (0-14); CARDIOLIPIN IGM ANTIBODY <9 MPL U/mL (0-12); CYTOPLASMIC NEUTROP AB ANCA-C <1:20 titer (Neg:<1:20); IgG P18 AB Absent (.); IgG P23 AB Absent (.); IgG P28 AB Absent (.); IgG P30 AB Absent (.); IgG P39 AB Absent (.); IgG P41 AB Absent (.); IgG P45 AB Absent (.); IgG P66 AB Absent (.); IgG P93 AB Absent (.); IgM P23 AB Absent (.); IgM P39 AB Absent (.); IgM P41 AB Absent (.); LYME IgG WB INTERPRETATION Negative (.); LYME IgM WB INTERPRETATION Negative (.); RNP ANTIBODIES 0.4 AI (0.0-0.9); SJOGREN'S ANTI SS-A <0.2 AI (0.0-0.9); SJOGREN'S ANTI SS-B 1.2 AI (0.0-0.9); SMITH ANTIBODIES <0.2 AI (0.0-0.9); VITAMIN B6,PYRIDOXAL PHOSPHATE 6.4 ug/L (3.4-65.2); VITAMIN E(ALPHA TOCOPHEROL) 9.1 mg/L (7.0-25.1); VITAMIN E(GAMMA TOCOPHEROL) 1.3 mg/L (0.5-5.5)
== END ==
LOC: M ADAMS 13:46
PROVIDERS: ATTEND Psychiatry & Neurology Neurology
DX: G35 Multiple sclerosis (principal); E11.9 Type 2 diabetes mellitus without complications

== ENCOUNTER → 2023-07-22 | Outpatient (CLI) | payer MEDICARE ==
[~2023-07-22] MED LIST changes: +ASPI-255 PO; +B-12100020 PO; +FOLI1TAB11 PO; +MELO5CAP2 PO; +METH-1165 PO; +RIZA10TA58 PO
[2023-07-22 10:28] VITALS: TEMP 100
[2023-07-22 11:54] LABS: APPEARANCE, CSF CLEAR (CLEAR); COLOR, CSF COLORLESS (COLORLESS); CSF TUBE# CELL CNT TUBE 1
[2023-07-22 12:24] LABS: CSF TUBE# TP TUBE 1; TOTAL PROTEIN,CSF 53.1 MG/DL (15-45)
[2023-07-22 12:27] LABS: CSF TUBE# GLU TUBE 1
[2023-07-22 12:58] VITALS: BP 105/53; O2SAT 98
== END ==
LOC: M IRPRO 10:15
PROVIDERS: ATTEND Psychiatry & Neurology Neurology
DX: G35 Multiple sclerosis (principal)

== ENCOUNTER → 2023-12-14 | Outpatient (REF) | payer MEDICARE ==
[2023-12-14 19:42] LABS: BASO % 0.1 % (0.0-1.0); HEMATOCRIT 40.2 % (36.0-47.0); HEMOGLOBIN 13.2 g/dl (12.0-15.5); LYMPH % 23.4 % (24.0-44.0); MEAN CORPUSCULAR HEMOGLOBIN 31.3 pg (27.0-33.0); MEAN CORPUSCULAR HGB CONC 32.8 g/dl (32.0-36.5); MEAN CORPUSCULAR VOLUME 95.3 fl (80.0-96.0); MONO # 0.4 10^3/uL (0.0-0.8); MONO % 4.4 % (2.0-8.0); NEUTROPHILS # 6.1 10^3/uL (1.5-8.5); NEUTROPHILS % 71.7 % (36.0-66.0); PLATELET COUNT, AUTOMATED 192 10^3/uL (150-450); RED BLOOD COUNT 4.22 10^6/uL (4.00-5.40); WHITE BLOOD COUNT 8.4 10^3/uL (4.0-10.0)
[2023-12-14 19:45] LABS: ALKALINE PHOSPHATASE 99 U/L (46-116); ALT/SGPT < 9 U/L (7.0-40); AST/SGOT < 8 U/L (<34); BILIRUBIN,TOTAL 0.4 MG/DL (0.3-1.2); BLOOD UREA NITROGEN 7 MG/DL (9-23); CALCIUM LEVEL 10.8 MG/DL (8.5-10.1); CARBON DIOXIDE LEVEL 25 MMOL/L (20-31); CHLORIDE LEVEL 114 MMOL/L (98-107); CREATININE FOR GFR 0.96 MG/DL (0.55-1.30); FOLATE > 24.0 NG/ML (>5.4); GLOMERULAR FILTRATION RATE > 60.0 (>51); GLUCOSE, FASTING 78 MG/DL (60-100); SODIUM LEVEL 142 MMOL/L (136-145); TOTAL 25(OH) VITAMIN D 67.1 NG/ML (20.0-100.0); TOTAL PROTEIN 6.6 G/DL (5.7-8.2)
[2023-12-14 19:46] LABS: VITAMIN B12 LEVEL 593 PG/ML (211-911)
== END ==
LOC: M LABDRWAD 17:12
PROVIDERS: ATTEND Psychiatry & Neurology Neurology
DX: E78.5 Hyperlipidemia, unspecified (principal); M79.7 Fibromyalgia; F34.1 Dysthymic disorder; E55.9 Vitamin D deficiency, unspecified; R51.9 Headache, unspecified; E53.8 Deficiency of other specified B group vitamins

== ENCOUNTER → 2023-12-14 | Outpatient (REF) | payer MEDICARE ==
[2023-12-14 19:41] LABS: HEMATOCRIT 40.2 % (36.0-47.0); HEMOGLOBIN 13.2 g/dl (12.0-15.5); LYMPH # 1.9 10^3/uL (1.5-5.0); LYMPH % 22.5 % (24.0-44.0); MEAN CORPUSCULAR HEMOGLOBIN 31.2 pg (27.0-33.0); MEAN CORPUSCULAR HGB CONC 32.8 g/dl (32.0-36.5); MONO # 0.4 10^3/uL (0.0-0.8); MONO % 4.4 % (2.0-8.0); NEUTROPHILS # 6.1 10^3/uL (1.5-8.5); NEUTROPHILS % 72.6 % (36.0-66.0); PLATELET COUNT, AUTOMATED 203 10^3/uL (150-450); RED BLOOD COUNT 4.23 10^6/uL (4.00-5.40); WHITE BLOOD COUNT 8.3 10^3/uL (4.0-10.0)
[2023-12-14 19:44] LABS: ALKALINE PHOSPHATASE 100 U/L (46-116); ALT/SGPT 11 U/L (7.0-40); AST/SGOT < 8 U/L (<34); BILIRUBIN,TOTAL 0.4 MG/DL (0.3-1.2); BLOOD UREA NITROGEN 8 MG/DL (9-23); CALCIUM LEVEL 10.7 MG/DL (8.5-10.1); CARBON DIOXIDE LEVEL 26 MMOL/L (20-31); CHLORIDE LEVEL 112 MMOL/L (98-107); CHOLESTEROL LEVEL 222 MG/DL (<200); CHOLESTEROL RISK RATIO 4.82 (<5); CREATININE FOR GFR 0.95 MG/DL (0.55-1.30); GLOMERULAR FILTRATION RATE > 60.0 (>51); GLUCOSE, FASTING 77 MG/DL (60-100); LDL CHOLESTEROL 148.6 MG/DL (<100); POTASSIUM SERUM 3.9 MMOL/L (3.5-5.1); SODIUM LEVEL 143 MMOL/L (136-145); TOTAL PROTEIN 6.7 G/DL (5.7-8.2); TRIGLYCERIDES LEVEL 137 MG/DL (<150)
[2023-12-14 19:45] LABS: THYROID STIMULATING HORMONE 1.418 uIU/ML (0.55-4.78)
[2023-12-14 19:46] LABS: TOTAL 25(OH) VITAMIN D 64.1 NG/ML (20.0-100.0)
[2023-12-14 21:06] LABS: HEMOGLOBIN A1c 4.7 % (4.0-6.0)
== END ==
LOC: M SFHCADAM 11:20
PROVIDERS: ATTEND Physician Assistant Medical
DX: E78.5 Hyperlipidemia, unspecified (principal); M79.7 Fibromyalgia; F34.1 Dysthymic disorder; E55.9 Vitamin D deficiency, unspecified; R51.9 Headache, unspecified; E53.8 Deficiency of other specified B group vitamins; Z79.899 Other long term (current) drug therapy

== ENCOUNTER → 2023-12-15 | Outpatient (REF) | payer MEDICARE | LOC: M SFHCADAM 14:59 | PROVIDERS: ATTEND Physician Assistant Medical | DX: E83.52 Hypercalcemia (principal) ==

== ENCOUNTER → 2023-12-22 | Outpatient (REF) | payer MEDICARE ==
[2023-12-22 20:26] LABS: CALCIUM, 24 HOUR URINE 292.3 MG/24HR (42-353); CALCIUM, URINE 15.8 MG/DL
== END ==
LOC: M SFHCADAM 17:23
PROVIDERS: ATTEND Physician Assistant Medical
DX: E83.52 Hypercalcemia (principal)

== ENCOUNTER → 2024-01-11 | Outpatient (CLI) | payer MEDICARE | LOC: M RAD 10:30 | PROVIDERS: ATTEND Physician Assistant Medical | DX: E01.0 Iodine-deficiency related diffuse (endemic) goiter (principal) ==

== ENCOUNTER → 2024-01-26 | Outpatient (REF) | payer MEDICARE ==
[2024-01-26 16:13] LABS: TOTAL PROTEIN 24 HOUR URINE 228.8 MG/24HR (50-80); URINE TOTAL PROTEIN 11.3 MG/DL (0-14)
== END ==
LOC: M LAB REF 12:53
PROVIDERS: ATTEND Student in an Organized Health Care Education/Training Program
DX: N17.9 Acute kidney failure, unspecified (principal); R80.9 Proteinuria, unspecified; R31.9 Hematuria, unspecified; M32.9 Systemic lupus erythematosus, unspecified

== ENCOUNTER → 2024-02-04 | Outpatient (REF) | payer MEDICARE ==
[2024-02-04 14:20] LABS: APPEARANCE, URINE CLEAR (CLEAR); BACTERIA, URINE AUTO NEGATIVE (NEGATIVE); BILIRUBIN, URINE AUTO NEGATIVE (NEGATIVE); BLOOD, URINE BLOOD 1+ (NEGATIVE); COLOR, URINE YELLOW (YELLOW); GLUCOSE, URINE (UA) AUTO NEGATIVE (NEGATIVE); KETONE, URINE AUTO NEGATIVE (NEGATIVE); LEUKOCYTE ESTERASE, URINE AUTO NEGATIVE (NEGATIVE); NITRITE, URINE AUTO NEGATIVE (NEGATIVE); PROTEIN, URINE AUTO NEGATIVE (NEGATIVE); RBC, URINE AUTO 1 /HPF (0-3); SPECIFIC GRAVITY URINE AUTO 1.004 (1.002-1.035); SQUAMOUS EPITHELIAL CELL UR AU 0 /HPF (0-6); UROBILINOGEN, URINE AUTO 0.2 mg/dL (0.0-2.0); WBC, URINE AUTO 1 /HPF (0-3)
[2024-02-04 14:39] LABS: BASO % 0.1 % (0.0-1.0); HEMATOCRIT 40.5 % (36.0-47.0); HEMOGLOBIN 13.3 g/dl (12.0-15.5); LYMPH # 1.9 10^3/uL (1.5-5.0); LYMPH % 24.8 % (24.0-44.0); MEAN CORPUSCULAR HEMOGLOBIN 31.2 pg (27.0-33.0); MEAN CORPUSCULAR HGB CONC 32.8 g/dl (32.0-36.5); MEAN CORPUSCULAR VOLUME 95.1 fl (80.0-96.0); MONO # 0.4 10^3/uL (0.0-0.8); MONO % 5.5 % (2.0-8.0); NEUTROPHILS # 5.2 10^3/uL (1.5-8.5); NEUTROPHILS % 69.3 % (36.0-66.0); PLATELET COUNT, AUTOMATED 191 10^3/uL (150-450); RED BLOOD COUNT 4.26 10^6/uL (4.00-5.40); WHITE BLOOD COUNT 7.5 10^3/uL (4.0-10.0)
[2024-02-04 14:46] LABS: CREATININE, URINE 27.2 MG/DL; CREATININE,RANDOM URINE 27.2 MG/DL
[2024-02-04 14:47] LABS: MALB URINE SIEMENS < 3.0 MG/L
[2024-02-04 14:52] LABS: ALBUMIN 4.1 G/DL (3.2-5.2); ALKALINE PHOSPHATASE 104 U/L (46-116); ALT/SGPT 10 U/L (7.0-40); AST/SGOT 8 U/L (<34); BILIRUBIN,TOTAL 0.5 MG/DL (0.3-1.2); BLOOD UREA NITROGEN 12 MG/DL (9-23); CALCIUM LEVEL 11.6 MG/DL (8.5-10.1); CARBON DIOXIDE LEVEL 26 MMOL/L (20-31); CHLORIDE LEVEL 114 MMOL/L (98-107); CREATININE FOR GFR 1.06 MG/DL (0.55-1.30); GLOMERULAR FILTRATION RATE 56.7 (>51); GLUCOSE, FASTING 91 MG/DL (60-100); SODIUM LEVEL 143 MMOL/L (136-145); TOTAL PROTEIN,RANDOM URINE < 6.0 MG/DL (0.0-14.0)
[2024-02-04 14:53] LABS: COMPLEMENT C3 107.7 MG/DL (90.0-170.0); COMPLEMENT C4 17.3 MG/DL (12-36)
[2024-02-04 14:54] LABS: HEPATITIS B SURFACE ANTIBODY POSITIVE (POSITIVE)
[2024-02-04 15:06] LABS: HEPATITIS B SURFACE ANTIGEN NEGATIVE (NEGATIVE)
[2024-02-04 15:27] LABS: HEPATITIS C VIRUS ABY INDEX 0.06 INDEX (<0.8)
[2024-02-06 15:08] LABS: ANA PATTERN Nuclear, Homogeneous (NEGATIVE); ANA SCREEN, IFA POSITIVE (NEGATIVE); ANA TITER 1:40 titer (<1:40)
[2024-02-10 16:42] LABS: ANCA SCREEN P-ANCA POS (Negative)
[2024-02-10 18:42] LABS: ANTI DS-DNA AB NEGATIVE (NEGATIVE)
== END ==
LOC: M LABDRWAD 12:42
PROVIDERS: ATTEND Student in an Organized Health Care Education/Training Program
DX: M32.9 Systemic lupus erythematosus, unspecified (principal)

== ENCOUNTER → 2024-02-23 | Outpatient (CLI) | payer MEDICARE | LOC: M RAD 12:40 | PROVIDERS: ATTEND Student in an Organized Health Care Education/Training Program | DX: N17.9 Acute kidney failure, unspecified (principal) ==

== ENCOUNTER → 2024-03-15 | Outpatient (REF) | payer MEDICARE ==
[2024-03-15 13:23] LABS: OSMOLALITY URINE 362 MOSM/KG (50-1400)
[2024-03-15 13:34] LABS: APPEARANCE, URINE CLEAR (CLEAR); BACTERIA, URINE AUTO NEGATIVE (NEGATIVE); BILIRUBIN, URINE AUTO NEGATIVE (NEGATIVE); BLOOD, URINE BLOOD 1+ (NEGATIVE); COLOR, URINE YELLOW (YELLOW); GLUCOSE, URINE (UA) AUTO NEGATIVE (NEGATIVE); KETONE, URINE AUTO NEGATIVE (NEGATIVE); LEUKOCYTE ESTERASE, URINE AUTO 1+ (NEGATIVE); NITRITE, URINE AUTO NEGATIVE (NEGATIVE); PROTEIN, URINE AUTO NEGATIVE (NEGATIVE); RBC, URINE AUTO 3 /HPF (0-3); SQUAMOUS EPITHELIAL CELL UR AU 0 /HPF (0-6); WBC, URINE AUTO 2 /HPF (0-3)
[2024-03-15 13:52] LABS: TOTAL PROTEIN,RANDOM URINE 15.3 MG/DL (0.0-14.0)
[2024-03-15 13:54] LABS: CALCIUM,RANDOM URINE 8.5 MG/DL
[2024-03-15 13:56] LABS: CREATININE, URINE 70.1 MG/DL; MAU/CREAT RATIO 12.8 MCG/MG (0.0-30.0)
== END ==
LOC: M LABDRWAD 12:49
PROVIDERS: ATTEND Student in an Organized Health Care Education/Training Program
DX: R80.9 Proteinuria, unspecified (principal); E83.52 Hypercalcemia

== ENCOUNTER → 2024-04-29 | Outpatient (REF) | payer MEDICARE ==
[2024-04-29 13:40] LABS: HEMATOCRIT 39.6 % (36.0-47.0); LYMPH # 1.7 10^3/uL (1.5-5.0); LYMPH % 25.7 % (24.0-44.0); MEAN CORPUSCULAR HEMOGLOBIN 30.9 pg (27.0-33.0); MEAN CORPUSCULAR HGB CONC 32.8 g/dl (32.0-36.5); MEAN CORPUSCULAR VOLUME 94.1 fl (80.0-96.0); MONO # 0.3 10^3/uL (0.0-0.8); MONO % 5.3 % (2.0-8.0); NEUTROPHILS # 4.4 10^3/uL (1.5-8.5); NEUTROPHILS % 68.7 % (36.0-66.0); PLATELET COUNT, AUTOMATED 206 10^3/uL (150-450); RED BLOOD COUNT 4.21 10^6/uL (4.00-5.40); WHITE BLOOD COUNT 6.4 10^3/uL (4.0-10.0)
[2024-04-29 13:50] LABS: ALBUMIN 3.9 G/DL (3.2-5.2); ALKALINE PHOSPHATASE 84 U/L (35-104); ALT/SGPT 14 U/L (7.0-40); AST/SGOT 10 U/L (<34); BILIRUBIN,TOTAL 0.4 MG/DL (0.3-1.2); BLOOD UREA NITROGEN 15 MG/DL (9-23); CALCIUM LEVEL 11.3 MG/DL (8.5-10.1); CARBON DIOXIDE LEVEL 23 MMOL/L (20-31); CHLORIDE LEVEL 113 MMOL/L (98-107); CREATININE FOR GFR 1.04 MG/DL (0.55-1.30); GLOMERULAR FILTRATION RATE 57.9 (>51); GLUCOSE, FASTING 86 MG/DL (60-100); POTASSIUM SERUM 3.8 MMOL/L (3.5-5.1); SODIUM LEVEL 139 MMOL/L (136-145); TOTAL PROTEIN 6.8 G/DL (5.7-8.2)
[2024-04-29 13:51] LABS: COMPLEMENT C3 121.7 MG/DL (90.0-170.0); COMPLEMENT C4 19.7 MG/DL (12-36); HEPATITIS B SURFACE ANTIBODY POSITIVE (POSITIVE)
[2024-04-29 14:02] LABS: HEPATITIS B SURFACE ANTIGEN NEGATIVE (NEGATIVE)
[2024-04-29 14:24] LABS: HEPATITIS C VIRUS ABY INDEX < 0.02 INDEX (<0.8)
[2024-05-02 13:38] LABS: ANA SCREEN, IFA NEGATIVE (NEGATIVE)
[2024-05-04 13:48] LABS: ANTI DS-DNA AB NEGATIVE (NEGATIVE)
== END ==
LOC: M LABDRWAD 12:25
PROVIDERS: ATTEND Student in an Organized Health Care Education/Training Program
DX: M32.9 Systemic lupus erythematosus, unspecified (principal); Z11.59 Encounter for screening for other viral diseases

== ENCOUNTER → 2024-05-02 | Outpatient (REF) | payer MEDICARE ==
[2024-05-02 13:05] LABS: APPEARANCE, URINE CLEAR (CLEAR); BACTERIA, URINE AUTO 1+ (NEGATIVE); BILIRUBIN, URINE AUTO NEGATIVE (NEGATIVE); BLOOD, URINE BLOOD 1+ (NEGATIVE); COLOR, URINE YELLOW (YELLOW); GLUCOSE, URINE (UA) AUTO NEGATIVE (NEGATIVE); KETONE, URINE AUTO TRACE mg/dL (NEGATIVE); LEUKOCYTE ESTERASE, URINE AUTO 1+ (NEGATIVE); MUCUS, URINE SMALL (NEGATIVE); NITRITE, URINE AUTO NEGATIVE (NEGATIVE); PROTEIN, URINE AUTO NEGATIVE (NEGATIVE); RBC, URINE AUTO 4 /HPF (0-3); SPECIFIC GRAVITY URINE AUTO 1.014 (1.002-1.035); SQUAMOUS EPITHELIAL CELL UR AU 0 /HPF (0-6); UROBILINOGEN, URINE AUTO 0.2 mg/dL (0.0-2.0); WBC, URINE AUTO 12 /HPF (0-3)
[2024-05-02 13:33] LABS: CREATININE,RANDOM URINE 109.7 MG/DL
== END ==
LOC: M LABDRWAD 12:24
PROVIDERS: ATTEND Student in an Organized Health Care Education/Training Program
DX: M32.9 Systemic lupus erythematosus, unspecified (principal); Z79.899 Other long term (current) drug therapy

== ENCOUNTER → 2025-04-04 | Outpatient (REF) | payer MEDICARE ==
[~2025-04-04] MED LIST changes: -RA T500C2 PO; +TURM500C10 PO
[2025-04-04 14:18] LABS: CHOLESTEROL LEVEL 175.0 MG/DL (<200); CHOLESTEROL RISK RATIO 3.21 (<5); LDL CHOLESTEROL 103.7 MG/DL (<100); NON-HDL-C 120.5 MG/DL; TRIGLYCERIDES LEVEL 84.0 MG/DL (<150)
[2025-04-04 14:26] LABS: ESTIMATED AVERAGE GLUCOSE 94.0 MG/DL (60-110)
== END ==
LOC: M SFHCADAM 09:29
PROVIDERS: ATTEND Physician Assistant Medical
DX: E78.5 Hyperlipidemia, unspecified (principal); Z79.899 Other long term (current) drug therapy

== ENCOUNTER → 2025-04-04 | Outpatient (REF) | payer MEDICARE ==
[2025-04-04 15:41] LABS: ALT/SGPT 12.0 U/L (7.0-40); AST/SGOT 14.0 U/L (<34); CALCIUM LEVEL 10.4 MG/DL (8.5-10.1); CARBON DIOXIDE LEVEL 25.0 MMOL/L (20-31); CHLORIDE LEVEL 111.0 MMOL/L (98-107); CREATININE FOR GFR 1.04 MG/DL (0.55-1.30); GLOMERULAR FILTRATION RATE 61.9 (>51); PHOSPHORUS LEVEL 2.5 MG/DL (2.5-4.9); POTASSIUM SERUM 4.0 MMOL/L (3.5-5.1); SODIUM LEVEL 143.0 MMOL/L (136-145)
[2025-04-04 15:48] LABS: TOTAL 25(OH) VITAMIN D 57.5 NG/ML (20.0-100.0)
[2025-04-04 16:25] LABS: PTH INTACT 70.8 PG/ML (18.5-88.0)
== END ==
LOC: M LABDRWAD 15:19
PROVIDERS: ATTEND Student in an Organized Health Care Education/Training Program
DX: E83.52 Hypercalcemia (principal)